=== PATIENT | female | born 1955 | race Caucasian/White ===

== ENCOUNTER 2021-06-17 09:42 | Outpatient (CLI) | payer MEDICARE | END 2021-06-17 23:59 | disposition home or self-care (01) | LOC: LAB.N 09:42 | PROVIDERS: ATTEND Family Medicine | DX: R39.9 Unspecified symptoms and signs involving the genitourinary system (principal) | CPT/HCPCS: 87086; 87181 ==

== ENCOUNTER 2022-03-15 12:35 | Outpatient (CLI) | payer MEDICARE ==
--- NOTE | 2022-03-15 16:54 | XRAY Report ---
PROCEDURE: Chest 2 View X-Ray INDICATIONS: ACUTE COUGH TECHNIQUE: 2 view(s) of the chest. COMPARISON: None. FINDINGS: Surgical changes and devices: None. Lungs and pleura: No pleural effusions or pneumothorax. Lungs are clear. Mediastinum: Mediastinal contours are normal. Heart size is normal. Bones and chest wall: No suspicious bony abnormalities. Soft tissues appear unremarkable. IMPRESSION: Chest without acute cardiopulmonary abnormalities. No focal consolidation. Reviewed by: Cabrera Cerda MD on 03/15/2022 4:51 PM PDT Approved by: Cabrera Cerda MD on 03/15/2022 4:51 PM PDT Station ID: [id number]
== END 2022-03-15 23:59 | disposition home or self-care (01) ==
LOC: DI.N 12:35
PROVIDERS: ATTEND Registered Nurse
DX: R05.1 Acute cough (principal)

== ENCOUNTER 2022-06-23 11:25 | Outpatient (CLI) | payer MEDICARE ==
--- NOTE | 2022-06-23 18:03 | XRAY Report ---
PROCEDURE: Chest 2 View X-Ray INDICATIONS: ABNORMAL CXR TECHNIQUE: 2 view(s) of the chest. COMPARISON: 03/15/2022. FINDINGS: Surgical changes and devices: None. Lungs and pleura: No pleural effusions or pneumothorax. Lungs are clear. Mediastinum: Mediastinal contours are normal. Heart size is normal. Bones and chest wall: No suspicious bony abnormalities. Soft tissues appear unremarkable. IMPRESSION: No acute cardiopulmonary pathology. Reviewed by: Gasper Mccormack MD on 06/23/2022 6:01 PM PDT Approved by: Gasper Mccormack MD on 06/23/2022 6:01 PM PDT Station ID: [id number]
== END 2022-06-23 11:26 | disposition home or self-care (01) ==
LOC: DI.N 11:25
PROVIDERS: ATTEND Student in an Organized Health Care Education/Training Program
DX: R91.8 Other nonspecific abnormal finding of lung field (principal)

== ENCOUNTER 2022-09-05 08:00 | Outpatient (CLI) | payer MEDICARE | END 2022-09-05 23:59 | disposition home or self-care (01) | LOC: LAB.R 08:00 | PROVIDERS: ATTEND Registered Nurse | DX: N39.0 Urinary tract infection, site not specified (principal) | CPT/HCPCS: 87086; 87181 ==

== ENCOUNTER 2022-10-10 16:32 | Outpatient (CLI) | payer MEDICARE ==
--- NOTE | 2022-10-10 17:39 | XRAY Report ---
PROCEDURE: Chest 2 View X-Ray INDICATIONS: COUGH TECHNIQUE: 2 views of the chest were acquired. COMPARISON: 06/23/2022, 03/15/2022 FINDINGS: Surgical changes and devices: None. Lungs and pleura: No pleural effusions or pneumothorax. Lungs are clear. Mediastinum: Mediastinal contours are normal. Heart size is normal. Calcification is seen of the a ortic arch. Bones and chest wall: No suspicious bony abnormalities. Age-appropriate degenerative changes are see n. There is accentuated thoracic kyphosis. Soft tissues appear unremarkable. IMPRESSION: No focal infiltrates are seen. Reviewed by: Gilson Gutierrez MD on 10/10/2022 4:38 PM [facility] Approved by: Gilson Gutierrez MD on 10/10/2022 4:38 PM [facility] Station ID: [id number]
== END 2022-10-10 23:59 | disposition home or self-care (01) ==
LOC: DI.N 16:32
PROVIDERS: ATTEND Nurse Practitioner
DX: R05.9 Cough, unspecified (principal)

== ENCOUNTER 2022-12-30 10:16 | Outpatient (CLI) | payer MEDICARE ==
[2022-12-30 10:56] VITALS: BP 132/80
--- NOTE | 2022-12-30 10:56 | SLEEP CARE CONSULTATION ---
Information from patient questionnaire entered by Jasmin Perez. I have reviewed and concur with the information entered by Jasmin Perez. This document represents the service I personally performed and the decisions made by me, Teresa Carson ARNP. History of Present Illness Service Date and Time: 12/30/2022 1016 Reason for Visit: New patient Chief Complaint: reports: Insomnia, Unrefreshed sleep, Snoring, Excessive daytime sleepiness, Observed pauses in breathing, Fatigue, Frequent awakenings at night Date of Onset: YRS Usual bedtime: 930-1130PM Time it takes to fall asleep: 10 MIN-1 HR Snores at night: Yes Observed to quit breathing while asleep: No Sleeps alone due to snoring: No Number of times waking at night: 4-6 Reasons for waking at night: reports: Snoring, Gasping for air, Pain, Bathroom Toss, Turn, or Twitch while sleeping: Yes Recalls having dreams: Yes (very vivid dreams all night) Usually gets out of bed at: 830AM Feels refreshed in the morning: Yes Morning headache: Yes (about every morning; LASTS ALL DAY USUALLY) Sleepy or fatigued during the day: Yes Ever fallen asleep while driving: No Takes day naps: Yes (very rare) Dreams during day naps: Yes Prior sleep studies: Yes Year and Where: [facility] Type of Sleep Study: Home sleep study Additional HPI information: I had the pleasure of seeing JOSE JAMIL today regarding the possibility of her having a sleep disorder. Her current complaints are unrefreshed sleep, snoring, excessive daytime sleepiness, observed pauses in breathing, fatigue and frequent night awakenings. She states she did have a sleep study that diagnosed her with sleep apnea but she did not tolerate the CPAP on her face. She is very sensitive to something on her face or in the room when she is trying to sleep. Patient was previously diagnosed with moderate obstructive sleep apnea by [facility] on 07/27/2020 with an AHI of 24.9. - Parasomnia Symptoms Walks in sleep: No Talks in sleep: No Ever acted out dreams in sleep: No Ever felt weak in the knees when startled or emotional: No Bothered by creepy, crawly, restless sensations in legs: Yes Problems with memory or concentration: Yes Subjective Initial [place] Sleepiness Scale score: 8 (12/29/22) Past Medical History Past Medical History: reports: Hypertension, Arthritis, Anxiety, GERD, Other (OSTEOPENIA, IBS, PSORIASIS) Social History The patient's occupation is a [employer]. Patient is and lives in [place]. Have you smoked in the past 12 months: No Alcohol use: Yes Alcohol amount and frequency: 2 GLASSES WINE DAILY Caffeine use: Yes Caffeine amount and frequency: 12 OZ PER WEEK Family History Family history of sleep disordered breathing: Yes Family Hx Sleep Apnea: Mother: Snoring, Sleep apnea - Untreated, Father: Snoring, Sleep apnea - Untreated, Sibling: Snoring, Sleep apnea - Treated Allergies and Home Medications Known drug allergies: Yes (BACTRIM - nausea/headache) Drug allergies reviewed: Yes Home medication list reviewed: Yes (see list in EMR) Review of Systems Weight loss over past 5 years: 30-trying to lose Cardiovascular: reports: high blood pressure, irregular heart rate or pulse (flutter), leg or foot swelling Respiratory: reports: shortness of breath, wheeze Gastrointestinal: reports: heartburn Neurological: reports: headaches Psychiatric: reports: anxiety Ear/Nose/Throat: reports: nasal congestion, sinus problems, dry mouth/throat, wisdom teeth removed. denies: tonsillectomy Endocrine: reports: sluggishness. denies: thyroid disease Musculoskeletal: reports: neck pain, back pain, muscle pain or cramping Immunologic: reports: sneezing, rash, itching, allergies to food or environment (do not use port product) Physical Exam Vital signs obtained and entered by: JASMIN Hobson MA Blood Pressure: 132/80 (LEFT ARM) Cuff size: regular Heart Rate: 57 O2 Saturation: 95 Height: 5 ft 6 in Weight: 201 lb 12.8 oz Body Mass Index: 32.5 BMI Classification: Obese Neck circumference: 16 Mouth and throat: narrow oropharynx Soft palate: long Hard palate: normal Uvula: normal Uvula visualization: 0% Mallampati Class IV Tongue: enlarged in size with teeth villarreal on lateral edges Tonsils: small Neck: normal w/o lymphadenopathy or thyromegaly Heart: regular rate and rhythm Lungs: clear bilaterally Impression and Plan 1. Suspected Obstructive Sleep Apnea-Hypopnea Syndrome, as previously diagnosed and as suggested by a history of loud and irregular snoring, observed cessation of breath while asleep, morning headache and frequent awakening during the night. Narrow oropharynx and obesity are common predisposing factors for obstructive sleep apnea-hypopnea syndrome. I recommend proceeding to polysomnography to confirm the diagnosis and to assess severity. If the patient has significant sleep disordered breathing, a manual CPAP titration study will also be performed to find the optimal treatment pressure. I informed the patient of what the sleep studies involve and after some discussion, obtained agreement to proceed. The pathophysiology of obstructive sleep apnea-hypopnea syndrome was discussed with the patient and health risks of cardiovascular and cerebrovascular disease if not treated. Risks of drowsy driving discussed in detail and patient advised to avoid long distance driving and to rod puller and coiler at the first sign of drowsiness. Patient agreed to plan. * Schedule polysomnography * Avoid long distance driving or driving when feeling sleepy. * Avoid alcohol, sedative and muscle relaxant around bedtime. * Attempt to lose weight. * Review instructions provided by trained office staff on how to prepare for the sleep study. * Return for follow-up after sleep study completed. Counseling Topics: Weight loss health impact Visit Type: In Office Time Spent with Patient (minutes): 32 Provider Statement: I spent 100% of the Face to Face Visit with the patient with greater than 50% spent counseling the patient and coordination of care.
== END 2022-12-30 10:17 | disposition home or self-care (01) ==
LOC: SC 10:16
PROVIDERS: ATTEND Nurse Practitioner Family
DX: G47.33 Obstructive sleep apnea (adult) (pediatric) (principal); E66.9 Obesity, unspecified; Z68.32 Body mass index [BMI] 32.0-32.9, adult
CPT/HCPCS: 99203; G0463; 99212

== ENCOUNTER 2023-02-09 08:52 | Outpatient (CLI) | payer MEDICARE | END 2023-02-09 08:53 | disposition home or self-care (01) | LOC: SC 08:52 | PROVIDERS: ATTEND Nurse Practitioner Family | DX: G47.33 Obstructive sleep apnea (adult) (pediatric) (principal); R09.02 Hypoxemia | CPT/HCPCS: 95810 ==

== ENCOUNTER 2023-03-29 11:43 | Outpatient (CLI) | payer MEDICARE ==
--- NOTE | 2023-03-29 12:11 | SLEEP CARE CONSULTATION ---
Information from patient questionnaire entered by Renee Perez. I have reviewed and concur with the information entered by Renee Perez. This document represents the service I personally performed and the decisions made by me, Teresa Carson ARNP. History of Present Illness Service Date and Time: 03/29/2023 1143 Initial [place] Sleepiness Scale score: 8 (12/29/22) Current [place] Sleepiness Scale score: 7 Additional HPI information: JOSE JAMIL returns for follow up and results of the recently performed home sleep study. She was seen to have severe obstructive sleep apnea with an average AHI of 32.9 and bucky oxygen saturation of 70%. I explained the pathophysiology behind obstructive sleep apnea. We then spent quite a bit of time discussing different treatment options. For mild obstructive sleep apnea, surgery and oral appliance are alternatives to nasal CPAP therapy but in moderate or severe cases, nasal CPAP is the most effective and reliable treatment. I reviewed the impact of weight changes on sleep apnea and strongly recommended losing weight. After some discussion, the patient opted to go with the nasal CPAP therapy. Nasal autoCPAP set at 4-15 cmH20 will be ordered with rationale explained. A manual titration study will be ordered if unable to find optimal pressure with office adjustments. I explained how CPAP machine works and what to expect when using the machine. Using CPAP every night in order to get used to it was emphasized. Patient advised to put CPAP mask on before getting into bed so as not to fall asleep without CPAP. To assist acclimation to CPAP use, it could also be used for a short time during day while reading or watching TV. The patient was instructed to call the CPAP supplier to discuss any mechanical problem that may occur. If the mask given is uncomfortable or is difficult to keep on through the night even with adjustment, contact the CPAP supplier as many will replace with another mask style if notified before 30 days. If snoring or perceives is not getting enough air or too much air from the machine, notify this office. Patient counseled not drink alcohol less than 4 hours before bedtime as it can increase snoring and apnea. Patient was cautioned about risks of drowsy driving until sleepiness symptoms resolve. Patient denies drowsy driving. Sleep Study - Results Type of Sleep Study: Home sleep study (COMPLETED 02/09/23) Prior sleep studies: Yes Year and Where: [facility] Polysomnography/Home Sleep Study results: Physician Impression: The quality of the study is good. The length of the study is adequate (> 240 minutes). Please also see the tabulated and graphic data. 1. Obstructive Sleep Apnea-Hypopnea (ICD-10 G47.33), severe, with an AHI of 32.9/hr and bucky SaO2 of 70%. During the study, the patient had 118 apneas (118 obstructive, 0 central, 0 mixed) and 137 hypopneas. The longest episode lasted 63.5 seconds. The patient did not sleep supine during this study. 2. Hypoxemia (ICD-10 R09.02), moderate, with the lowest oxygen saturation of 70 % and 78.5 minutes with SaO2 under 90%. Baseline oxygen saturation was normal (Average oxygen saturation was 91%). Allergies and Home Medications Known drug allergies: No Drug allergies reviewed: Yes Home medication list reviewed: Yes (no changes) Allergy and home medication list: Allergies No Known Drug Allergies Allergy (Verified 03/28/23 21:58) Review of Systems Review of systems same as previous: Yes (no changes) Physical Exam Vital signs obtained and entered by: Teresa Marquez NP Blood Pressure: 136/76 Cuff size: wrist (right) Heart Rate: 53 O2 Saturation: 99 Height: 5 ft 6 in Weight: 196 lb 3.2 oz Body Mass Index: 31.6 BMI Classification: Obese Impression and Plan 1. Obstructive Sleep Apnea-Hypopnea Syndrome, severe, with lowest oxygen saturation of 70%. Obviously this is the cause of the patients symptoms of unrefreshed sleep, and excessive daytime sleepiness. Positive pressure therapy could benefit hypertension, anxiety and gastric reflux. As mentioned above, the patient will be started on nasal autoCPAP therapy with pressure set at 4-15 cmH2 O. Compliance guidelines also reviewed. A copy of compliance guidelines will be given for reference at check out. 2. Hypoxemia, moderate, with a bucky oxygen saturation of 70% and 78.5 minutes spent under 90%. Her baseline oxygen saturation was normal with an average oxygen saturation of 91%. * Nasal auto CPAP therapy, pressure at 4-15 cm H2O. * Attempt to lose weight. * Avoid alcohol consumption near bedtime. * Avoid supine sleep until using CPAP. * The patient is again cautioned about driving until sleepiness completely resolves. * Return one month after CPAP obtained. I will assess response to therapy and compliance at that time. Counseling Topics: Weight loss health impact Visit Type: In Office Time Spent with Patient (minutes): 21 Provider Statement: I spent 100% of the Face to Face Visit with the patient with greater than 50% spent counseling the patient and coordination of care.
[2023-03-29 12:12] VITALS: BP 136/76
== END 2023-03-29 11:44 | disposition home or self-care (01) ==
LOC: SC 11:43
PROVIDERS: ATTEND Nurse Practitioner Family
DX: G47.33 Obstructive sleep apnea (adult) (pediatric) (principal); R09.02 Hypoxemia; E66.9 Obesity, unspecified; Z68.31 Body mass index [BMI] 31.0-31.9, adult
CPT/HCPCS: 99213; G0463; 99212

== ENCOUNTER 2023-06-20 15:24 | Outpatient (CLI) | payer MEDICARE ==
--- NOTE | 2023-06-20 15:44 | Sleep Patient Instructions ---
Sleep Center Visit Summary - Patient Visit Information Reason for Visit: First Compliance for PAP Therapy - Patient Instructions Additional Instructions: You were here for follow up of CPAP therapy. You will be continued on CPAP therapy with pressure at 10-16 cmH2O. Please let us know if the pressure change is uncomfortable and we can make further adjustments of the pressure. You should follow up with sleep care in 1-2 months. You may contact us sooner for any questions or concerns. - Clinic Information Contact: [facility] [address] [place] [address] [email or web address] T: [phone]
--- NOTE | 2023-06-20 15:49 | SLEEP CARE CONSULTATION ---
Information from patient questionnaire entered by Jasmin Perez. I have reviewed and concur with the information entered by Jasmin Perez. This document represents the service I personally performed and the decisions made by me, Teresa Carson ARNP. History of Present Illness Service Date and Time: 06/20/2023 1524 Previous diagnosis: Severe, Obstructive Sleep Apnea-Hypopnea Syndrome AHI: 32.9 (01/2023) Reason for follow up: first compliance Equipment type: CPAP (RESMED Airsense 11, s/u 04/2023) Equipment obtained from: Other ([facility]) Mask style: Nasal pillows Mask brand: Resmed (AirFit P10) Backup mask available: Yes (other mask) Last cushion change: 2 weeks Prior sleep studies: Yes Year and Where: [facility] Type of Sleep Study: Home sleep study (COMPLETED 02/09/23) HPI additional information: JOSE JAMIL was diagnosed to have severe, AHI 32.9, obstructive sleep apnea- hypopnea syndrome and returned today for CPAP therapy first compliance follow- up. Sleep Study - Results Type of Sleep Study: Home sleep study (COMPLETED 02/09/23) Prior sleep studies: Yes Year and Where: [facility] CPAP Compliance Data - Data Reviewed with Patient Average duration of nightly device use: 6 hours 50 minutes Compliance rate %: 93 (/30 days used) Current pressure setting (cmH2O): 4-15 (median 7.7, avg 10, max 11.3) Average residual AHI: 9.4 Central apnea: 5.0 Obstructive apnea: 3.6 Hypopnea: 0.5 Average large leak: 0.6 Subjective Patient concerns: denies: aerophagia, mask discomfort, air blowing in eyes, mask leak noise, condensation in mask/hose, nasal congestion, dry mouth, nose, throat, epistaxis Observed to snore while using device: No Current pressure setting perceived as: comfortable On therapy, patient: reports: sleeping better, awakening more refreshed, being more awake and alert during the day, more rested overall. denies: drowsiness while driving Initial [place] Sleepiness Scale score: 8 (12/29/22) Current [place] Sleepiness Scale score: 8 (06/20/23) Allergies and Home Medications Known drug allergies: No Drug allergies reviewed: Yes Home medication list reviewed: Yes (no changes) Allergy and home medication list: Allergies No Known Drug Allergies Allergy (Verified 06/16/23 10:04) Review of Systems Review of systems same as previous: Yes (no changes) Physical Exam Vital signs obtained and entered by: JASMIN Hobson MA Blood Pressure: 128/72 (LEFT ARM) Cuff size: regular Heart Rate: 51 O2 Saturation: 96 Height: 5 ft 6 in Weight: 194 lb Body Mass Index: 31.3 BMI Classification: Obese Impression and Plan 1. Obstructive Sleep Apnea-Hypopnea Syndrome, severe, with good treatment compliance and fair apnea control with elevated residual AHI. On CPAP therapy, the patient has better sleep quality and is more rested overall. She states she tried the CPAP 6 years ago and could not adjust to it. She was very pleasantly surprised that with the nasal pillows mask, AirFit P10, she finds it comfortable and is tolerating it well. She sometimes has to pull mask off to see if the pressure is on, perhaps a little too low but otherwise comfortable. The patients pressure will be changed to autoCPAP 10-16 cmH20 to reflect pressure being used and for elevated residual AHI. If unable to reduce AHI will schedule a titration study to find optimal pressure setting. Patient advised to contact me if pressure change is uncomfortable so that it can be adjusted. Goals for apnea control discussed. Patient's apnea severity and rationale for treatment to reduce apnea, improve sleep quality and reduce cardiovascular and cerebrovascular events was reviewed. I also reviewed the benefit of consistent device use of CPAP for hypertension, gastric reflux and anxiety. 2. Obesity, unspecified. Currently patients BMI is 31.3. Obesity increases the risk of apnea, CPAP pressure requirements and overall health risks especially cardiovascular and diabetes. Thus patient is advised to lose weight. * Change auto CPAP pressure to 10-16 cmH2O * Notify me if snoring with mask or feeling that the pressure is too much or too little * Attempt to lose weight * Call this office if any problems using CPAP * Return for follow up in 1-2 months, or sooner if concerns arise Counseling Topics: Spare mask, Weight loss health impact Visit Type: In Office Time Spent with Patient (minutes): 15 Provider Statement: I spent 100% of the Face to Face Visit with the patient with greater than 50% spent counseling the patient and coordination of care.
[2023-06-20 15:55] VITALS: BP 128/72; O2SAT 96
== END 2023-06-20 15:25 | disposition home or self-care (01) ==
LOC: SC 15:24
PROVIDERS: ATTEND Nurse Practitioner Family
DX: G47.33 Obstructive sleep apnea (adult) (pediatric) (principal); E66.9 Obesity, unspecified; Z68.31 Body mass index [BMI] 31.0-31.9, adult
CPT/HCPCS: 99212; G0463

== ENCOUNTER 2023-08-08 14:54 | Outpatient (CLI) | payer MEDICARE ==
--- NOTE | 2023-08-08 15:14 | Sleep Patient Instructions ---
Sleep Center Visit Summary - Patient Visit Information Reason for Visit: 6-week follow up - Patient Instructions Additional Instructions: You were here for follow up of CPAP therapy. You will be continued on CPAP therapy with pressure at 10-16 cmH2O. You should follow up with sleep care in 3 months. You may contact us sooner for any questions or concerns. - Clinic Information Contact: [facility] [address] [place] [address] [email or web address] T: [phone]
--- NOTE | 2023-08-08 15:21 | SLEEP CARE CONSULTATION ---
Information from patient questionnaire entered by Jasmin Perez. I have reviewed and concur with the information entered by Jasmin Perez. This document represents the service I personally performed and the decisions made by , Teresa Carson ARNP. History of Present Illness Service Date and Time: 08/08/2023 1454 Previous diagnosis: Severe, Obstructive Sleep Apnea-Hypopnea Syndrome AHI: 32.9 (01/2023) Reason for follow up: other (SI WEEK F/U) Equipment type: CPAP (RESMED Airsense 11, s/u 04/2023) Equipment obtained from: Other ([facility]; getting supplies) Mask style: Nasal pillows Backup mask available: No (will keep old mask when replaced) Last cushion change: 2 weeks Prior sleep studies: Yes Year and Where: [facility] Type of Sleep Study: Home sleep study (COMPLETED 02/09/23) HPI additional information: JOSE JAMIL was diagnosed to have severe, AHI 32.9, obstructive sleep apnea- hypopnea syndrome and returned today for CPAP therapy six week with pressure change follow-up. Sleep Study - Results Type of Sleep Study: Home sleep study (COMPLETED 02/09/23) Prior sleep studies: Yes Year and Where: [facility] CPAP Compliance Data - Data Reviewed with Patient Average duration of nightly device use: 5 hours 54 minutes Compliance rate %: 55 ( day used) Current pressure setting (cmH2O): 10-16 (avg 12.1) Average residual AHI: 6.4 Central apnea: 3.8 Obstructive apnea: 1.7 Hypopnea: 0.4 Average large leak: 4.9 L/min Subjective Missed days of use due to: reports: illness (got Covid 07/06 and due to cough and congestion unable to use the CPAP) Patient concerns: denies: aerophagia, mask discomfort, air blowing in eyes, mask leak noise, condensation in mask/hose, nasal congestion, dry mouth, nose, throat, epistaxis Observed to snore while using device: No Current pressure setting perceived as: comfortable On therapy, patient: reports: sleeping better, awakening more refreshed, being more awake and alert during the day, more rested overall. denies: drowsiness while driving Initial [place] Sleepiness Scale score: 8 (12/29/22) Current [place] Sleepiness Scale score: 8 (08/08/23) Allergies and Home Medications Known drug allergies: No Drug allergies reviewed: Yes Home medication list reviewed: Yes (felodipine 5 mg; starting on Albuterol inhaler for residual Covid syptoms) Allergy and home medication list: Allergies No Known Drug Allergies Allergy (Verified 08/07/23 09:43) Review of Systems Review of systems same as previous: No (Covid 07/06, resolve with residual symptoms) Physical Exam Vital signs obtained and entered by: JASMIN Hobson MA Blood Pressure: 122/74 (LEFT ARM) Cuff size: regular Heart Rate: 71 O2 Saturation: 94 Height: 5 ft 6 in Weight: 197 lb 9.6 oz Body Mass Index: 31.8 BMI Classification: Obese Impression and Plan 1. Obstructive Sleep Apnea-Hypopnea Syndrome, severe, with good treatment compliance and fair apnea control. On CPAP therapy, the patient has better sleep quality and is more rested overall. She says things are going very well with the CPAP and the pressure felt better after her last adjustment. She says she got Covid in June and had a hard time using the CPAP because of coughing and congestion. She has resumed using the CPAP but is still having residual cough and breathing issues. [place] was prescribed an Albuterol inhaler. She hopes this will allow her to use her CPAP easier. I reviewed her compliance and therapy report which shows improvement of her AHI. I will make no adjustments today and have her followup in 3 months. Patient has significant improvement of their sleep apnea and is satisfied with current CPAP therapy. Patient's apnea severity and rationale for treatment to reduce apnea, improve sleep quality and reduce cardiovascular and cerebrovascular events was reviewed. I also reviewed the benefit of consistent device use of CPAP for hypertension, gastric reflux and anxiety. 2. Obesity, unspecified. Currently patients BMI is 31.8. Obesity increases the risk of apnea, CPAP pressure requirements and overall health risks especially cardiovascular and diabetes. Thus patient is advised to lose weight. * Continue auto CPAP pressure at 10-16 cmH2O * Notify me if snoring with mask or feeling that the pressure is too much or too little * Attempt to lose weight * Call this office if any problems using CPAP * Return for follow up in 3 months, or sooner if concerns arise Counseling Topics: Spare mask, Weight loss health impact Follow up with Sleep Care in: 3 months Visit Type: In Office Time Spent with Patient (minutes): 21 Provider Statement: I spent 100% of the Face to Face Visit with the patient with greater than 50% spent counseling the patient and coordination of care.
[2023-08-08 15:22] VITALS: BP 122/74; O2SAT 94
== END 2023-08-08 14:55 | disposition home or self-care (01) ==
LOC: SC 14:54
PROVIDERS: ATTEND Nurse Practitioner Family
DX: G47.33 Obstructive sleep apnea (adult) (pediatric) (principal); E66.9 Obesity, unspecified; Z68.31 Body mass index [BMI] 31.0-31.9, adult
CPT/HCPCS: 99213; G0463; 99212

== ENCOUNTER 2023-11-14 10:44 | Outpatient (CLI) | payer MEDICARE ==
--- NOTE | 2023-11-14 11:17 | Sleep Patient Instructions ---
Sleep Center Visit Summary - Patient Visit Information Reason for Visit: Three month follow-up - Patient Instructions Additional Instructions: You were here for follow up of CPAP therapy. You will be continued on CPAP therapy with pressure at 9-11 cmH2O. Please let us know if the pressure change is uncomfortable and we can make further adjustments of the pressure. You should follow up with sleep care in 1-2 months. You may contact us sooner for any questions or concerns. - Clinic Information Contact: [facility] [address] [place] [id number] [email or web address] T: [phone]
--- NOTE | 2023-11-14 11:19 | SLEEP CARE CONSULTATION ---
Information from patient questionnaire entered by Renee Perez. I have reviewed and concur with the information entered by Renee Perez. This document represents the service I personally performed and the decisions made by , Teresa Carson ARNP. History of Present Illness Service Date and Time: 11/14/2023 1044 Previous diagnosis: Severe, Obstructive Sleep Apnea-Hypopnea Syndrome AHI: 32.9 (01/2023) Reason for follow up: three month (F/U) Equipment type: CPAP (RESMED Airsense 11, s/u 04/2023) Equipment obtained from: Other ([facility]; getting supplies) Mask style: Nasal pillows Mask brand: Resmed (AirFit P10) Backup mask available: Yes Last cushion change: 1 month Prior sleep studies: Yes Year and Where: [facility] Type of Sleep Study: Home sleep study (COMPLETED 02/09/23) HPI additional information: JOSE JAMIL was diagnosed to have severe, AHI 32.9, obstructive sleep apnea- hypopnea syndrome and returned today for CPAP therapy three month follow-up. Sleep Study - Results Type of Sleep Study: Home sleep study (COMPLETED 02/09/23) Prior sleep studies: Yes Year and Where: [facility] CPAP Compliance Data - Data Reviewed with Patient Average duration of nightly device use: 6 HRS 38 MINS Compliance rate %: 90 (10/15/2023-11/13/2023) Current pressure setting (cmH2O): 10-16 (as seen online) (median 10.8, avg 12.3, max 13.2) Average residual AHI: 11.7 Central apnea: 8.3 Obstructive apnea: 1.9 Hypopnea: 0.4 Average large leak: 6 L/min Subjective Missed days of use due to: reports: illness (Covid, cough) Patient concerns: denies: aerophagia, mask discomfort, air blowing in eyes, mask leak noise, condensation in mask/hose, nasal congestion, dry mouth, nose, throat, epistaxis Observed to snore while using device: No Current pressure setting perceived as: comfortable On therapy, patient: reports: sleeping better, awakening more refreshed, being more awake and alert during the day, more rested overall. denies: drowsiness while driving Initial [place] Sleepiness Scale score: 8 (12/29/22) Current [place] Sleepiness Scale score: 6 Allergies and Home Medications Known drug allergies: Yes (Bactrim, pork products) Drug allergies reviewed: Yes Home medication list reviewed: Yes (as listed) Allergy and home medication list: Allergies Pork/Porcine Containing Products Adverse Reaction (Verified 11/14/23 11:07) Rash sulfamethoxazole [From Bactrim] Adverse Reaction (Verified 11/14/23 11:07) Nausea trimethoprim [From Bactrim] Adverse Reaction (Verified 11/14/23 11:07) Nausea Home Medications Aspirin [Aspirin EC] See Rx Instructions .ROUTE .COMPLEX 12/30/22 [History] Atorvastatin [Lipitor] See Rx Instructions .ROUTE .COMPLEX 12/30/22 [History] Ezetimibe [Zetia] See Rx Instructions .ROUTE .COMPLEX 12/30/22 [History] Fluoxetine HCl [Prozac] See Rx Instructions .ROUTE .COMPLEX 12/30/22 [History] Losartan Potassium [Cozaar] See Rx Instructions .ROUTE .COMPLEX 12/30/22 [History] Magnesium Citrate and Oxide [Magnesium] See Rx Instructions .ROUTE .COMPLEX 12/30/22 [History] Metoprolol Succinate [Toprol Xl] See Rx Instructions .ROUTE .COMPLEX 12/30/22 [History] Multivit-Minerals/Folic Acid [Multivitamin Gummies] See Rx Instructions .ROUTE .COMPLEX 12/30/22 [History] Pantoprazole [Protonix] See Rx Instructions .ROUTE .COMPLEX 12/30/22 [History] Ubidecarenone [Co Q-10] See Rx Instructions .ROUTE .COMPLEX 12/30/22 [History] hydroCHLOROthiazide [Hydrodiuril] See Rx Instructions .ROUTE .COMPLEX 12/30/22 [History] Albuterol Sulfate [Proair Respiclick] See Rx Instructions .ROUTE .COMPLEX 08/08/23 [History] Felodipine [Felodipine ER] See Rx Instructions .ROUTE .COMPLEX 08/08/23 [History] Review of Systems Review of systems same as previous: Yes (no changes) Physical Exam Vital signs obtained and entered by: SUMAN SANCHEZ Blood Pressure: 148/73 Cuff size: regular (right arm) Heart Rate: 51 O2 Saturation: 98 Height: 5 ft 6 in Weight: 207 lb 6.4 oz Body Mass Index: 33.5 BMI Classification: Obese Impression and Plan 1. Obstructive Sleep Apnea-Hypopnea Syndrome, severe, with good treatment compliance and fair apnea control with elevated residual AHI. On CPAP therapy, the patient has better sleep quality and is more rested overall. She had elevated central index at 8.3, obstructive index at 1.9 and hypopnea index at 0.4. The patients pressure will be changed to autoCPAP 9-11 cmH20 for elevation of residual AHI. Patient advised to contact me if pressure change is uncomfortable so that it can be adjusted. Goals for apnea control discussed. Patient's pressure setting is not optimal to control sleep apnea. I advised patient that a titration study will be next step to determine a more optimal pressure setting. She would like to see if this adjustment is enough before going ahead with a titration study. We will have her followup in 1-2 months and revisit the titration study as needed. Patient's apnea severity and rationale for treatment to reduce apnea, improve sleep quality and reduce cardiovascular and cerebrovascular events was reviewed. I also reviewed the benefit of consistent device use of CPAP for hypertension, gastric reflux and anxiety. 2. Obesity, unspecified. Currently patients BMI is 33.5. Obesity increases the risk of apnea, CPAP pressure requirements and overall health risks especially cardiovascular and diabetes. Thus patient is advised to lose weight. * Change auto CPAP pressure to 9-11 cmH2O * Notify me if snoring with mask or feeling that the pressure is too much or too little * Attempt to lose weight * Call this office if any problems using CPAP * Return for follow up in 1-2 months, or sooner if concerns arise Counseling Topics: Spare mask, Weight loss health impact Follow up with Sleep Care in: 1-2 months Visit Type: In Office Time Spent with Patient (minutes): 21 Provider Statement: I spent 100% of the Face to Face Visit with the patient with greater than 50% spent counseling the patient and coordination of care.
[2023-11-14 11:28] VITALS: BP 148/73; O2SAT 98
== END 2023-11-14 10:45 | disposition home or self-care (01) ==
LOC: SC 10:44
PROVIDERS: ATTEND Nurse Practitioner Family
DX: G47.33 Obstructive sleep apnea (adult) (pediatric) (principal); E66.9 Obesity, unspecified; Z68.33 Body mass index [BMI] 33.0-33.9, adult
CPT/HCPCS: 99213; G0463; 99212

== ENCOUNTER 2024-01-10 10:27 | Outpatient (CLI) | payer MEDICARE ==
--- NOTE | 2024-01-10 10:50 | Sleep Patient Instructions ---
Sleep Center Visit Summary - Patient Visit Information Reason for Visit: 2-month follow-up with pressure change - Patient Instructions Additional Instructions: You were here for follow up of CPAP therapy. You will be continued on CPAP therapy with pressure at 8-10 cmH2O. Please let us know if the pressure change is uncomfortable and we can make further adjustments of the pressure. You should follow up with sleep care in 1-2 months. You may contact us sooner for any questions or concerns. - Clinic Information Contact: [facility] [place] [facility] [address] [place] [id number] [email or web address] T: [phone]
--- NOTE | 2024-01-10 10:51 | SLEEP CARE CONSULTATION ---
Information from patient questionnaire entered by Jasmin Perez. I have reviewed and concur with the information entered by Jasmin Perez. This document represents the service I personally performed and the decisions made by , Teresa Carson ARNP. History of Present Illness Service Date and Time: 01/10/2024 1027 Previous diagnosis: Severe, Obstructive Sleep Apnea-Hypopnea Syndrome AHI: 32.9 (01/2023) Reason for follow up: other (2 MONTH F/U) Equipment type: CPAP (RESMED Airsense 11, s/u 04/2023) Equipment obtained from: Other ([facility]; getting supplies) Mask style: Nasal pillows Mask brand: Resmed (AirFit P10) Backup mask available: Yes Last cushion change: 1 month Prior sleep studies: Yes Year and Where: [facility] Type of Sleep Study: Home sleep study (COMPLETED 02/09/23) HPI additional information: JOSE JAMIL was diagnosed to have severe, AHI 32.9, obstructive sleep apnea- hypopnea syndrome and returned today for CPAP therapy two month follow-up. Sleep Study - Results Type of Sleep Study: Home sleep study (COMPLETED 02/09/23) Prior sleep studies: Yes Year and Where: [facility] CPAP Compliance Data - Data Reviewed with Patient Average duration of nightly device use: 6 HRS 29 MINS Compliance rate %: 65 (11/09/23-01/07/24; 42/60 days used; 83% in las 30 days) Current pressure setting (cmH2O): 9-11 (median 10.1, avg 11, max 11.1) Average residual AHI: 8.8 Central apnea: 5.7 Obstructive apnea: 2.4 Hypopnea: 0.3 Average large leak: 4.5 L/min Subjective Missed days of use due to: reports: illness Patient concerns: denies: aerophagia, mask discomfort, air blowing in eyes, mask leak noise, condensation in mask/hose, nasal congestion, dry mouth, nose, throat, epistaxis Observed to snore while using device: No Current pressure setting perceived as: comfortable On therapy, patient: reports: sleeping better, awakening more refreshed, being more awake and alert during the day, more rested overall. denies: drowsiness while driving Initial [place] Sleepiness Scale score: 8 (12/29/22) Current [place] Sleepiness Scale score: 7 (01/10/24) Allergies and Home Medications Known drug allergies: Yes (as listed) Drug allergies reviewed: Yes Home medication list reviewed: Yes (no changes) Allergy and home medication list: Allergies Pork/Porcine Containing Products Adverse Reaction (Verified 01/08/24 08:48) Rash sulfamethoxazole [From Bactrim] Adverse Reaction (Verified 01/08/24 08:48) Nausea trimethoprim [From Bactrim] Adverse Reaction (Verified 01/08/24 08:48) Nausea Review of Systems Review of systems same as previous: Yes (NO CHANGE) Physical Exam Vital signs obtained and entered by: JASMIN Hobson MA Blood Pressure: 135/63 (RIGHT ARM) Cuff size: regular Heart Rate: 58 O2 Saturation: 96 Height: 5 ft 6 in Weight: 207 lb Body Mass Index: 33.4 BMI Classification: Obese Impression and Plan 1. Obstructive Sleep Apnea-Hypopnea Syndrome, severe, with fair treatment compliance and fair apnea control with elevated residual AHI. On CPAP therapy, the patient has better sleep quality and is more rested overall. She has a residual AHI elevated at 8.8 which is reduced with last adjustment. Her indexes include CI 5.7, OI 2.4 and HI 0.3. Her average large leak is at 4.5 L/min. The patients pressure will be changed to autoCPAP 8-10 cmH20 for elevation of residual AHI. Patient advised to contact me if pressure change is uncomfortable so that it can be adjusted. Goals for apnea control discussed. Patient's apnea severity and rationale for treatment to reduce apnea, improve sleep quality and reduce cardiovascular and cerebrovascular events was reviewed. I also reviewed the benefit of consistent device use of CPAP for hypertension, gastric reflux, anxiety. 2. Obesity, unspecified. Currently patients BMI is 33.4. Obesity increases the risk of apnea, CPAP pressure requirements and overall health risks especially cardiovascular and diabetes. Thus patient is advised to lose weight. * Change auto CPAP pressure to 8-10 cmH2O * Notify me if snoring with mask or feeling that the pressure is too much or too little * Attempt to lose weight * Call this office if any problems using CPAP * Return for follow up in 1-2 months, or sooner if concerns arise Adjust device pressure to (cmH2O): 8-10 Counseling Topics: Spare mask, Weight loss health impact Follow up with Sleep Care in: 1-2 months Visit Type: In Office Time Spent with Patient (minutes): 12 Provider Statement: I spent 100% of the Face to Face Visit with the patient with greater than 50% spent counseling the patient and coordination of care.
[2024-01-10 11:00] VITALS: BP 135/63; O2SAT 96
== END 2024-01-10 10:28 | disposition home or self-care (01) ==
LOC: SC 10:27
PROVIDERS: ATTEND Nurse Practitioner Family
DX: G47.33 Obstructive sleep apnea (adult) (pediatric) (principal); E66.9 Obesity, unspecified; Z68.33 Body mass index [BMI] 33.0-33.9, adult
CPT/HCPCS: 99212; G0463

== ENCOUNTER 2024-03-05 10:28 | Outpatient (CLI) | payer MEDICARE ==
--- NOTE | 2024-03-05 10:58 | Sleep Patient Instructions ---
Sleep Center Visit Summary - Patient Visit Information Reason for Visit: 2-month follow-up - Patient Instructions Additional Instructions: You were here for follow up of CPAP therapy. You will be continued on CPAP therapy with pressure at 6-9 cmH2O. Please let us know if the pressure change is uncomfortable and we can make further adjustments of the pressure. You should follow up with sleep care in 3 months. You may contact us sooner for any questions or concerns. - Clinic Information Contact: [facility] [address] [place] [id number] [email or web address] T: [phone]
--- NOTE | 2024-03-05 11:00 | SLEEP CARE CONSULTATION ---
Information from patient questionnaire entered by Jasmin Perez. I have reviewed and concur with the information entered by Jasmin Perez. This document represents the service I personally performed and the decisions made by , Teresa Carson ARNP. History of Present Illness Service Date and Time: 03/05/2024 1028 Previous diagnosis: Severe, Obstructive Sleep Apnea-Hypopnea Syndrome AHI: 32.9 (01/2023) Reason for follow up: other (2MONTH F/U) Equipment type: CPAP (RESMED Airsense 11, s/u 04/2023) Equipment obtained from: Other ([facility]; getting supplies) Mask style: Nasal pillows Backup mask available: Yes Last cushion change: 1 month Prior sleep studies: Yes Year and Where: [facility] Type of Sleep Study: Home sleep study (COMPLETED 02/09/23) HPI additional information: JOSE JAMIL was diagnosed to have severe, AHI 32.9, obstructive sleep apnea- hypopnea syndrome and returned today for CPAP therapy two month follow-up. Sleep Study - Results Type of Sleep Study: Home sleep study (COMPLETED 02/09/23) Prior sleep studies: Yes Year and Where: [facility] CPAP Compliance Data - Data Reviewed with Patient Average duration of nightly device use: 6 HRS 38 MINS Compliance rate %: 82 (12/31/23-02/28/24; 53/60 days used) Current pressure setting (cmH2O): 8-10 (avg 9.9) Average residual AHI: 6.8 Central apnea: 3.2 Obstructive apnea: 2.8 Hypopnea: 0.4 Average large leak: 5.1 L/min Subjective Patient concerns: denies: aerophagia, mask discomfort, air blowing in eyes, mask leak noise, condensation in mask/hose, nasal congestion, dry mouth, nose, throa t, epistaxis Observed to snore while using device: No Current pressure setting perceived as: comfortable On therapy, patient: reports: sleeping better, awakening more refreshed, being more awake and alert during the day, more rested overall. denies: drowsiness while driving Initial [place] Sleepiness Scale score: 8 (12/29/22) Current [place] Sleepiness Scale score: 6 (03/05/24) Allergies and Home Medications Known drug allergies: Yes (as listed) Drug allergies reviewed: Yes Home medication list reviewed: Yes (no changes) Allergy and home medication list: Allergies Pork/Porcine Containing Products Adverse Reaction (Verified 02/29/24 11:43) Rash sulfamethoxazole [From Bactrim] Adverse Reaction (Verified 02/29/24 11:43) Nausea trimethoprim [From Bactrim] Adverse Reaction (Verified 02/29/24 11:43) Nausea Review of Systems Review of systems same as previous: Yes (NO CHANGE) Physical Exam Vital signs obtained and entered by: JASMIN Hobson MA Blood Pressure: 149/78 (LEFT ARM) Cuff size: long Heart Rate: 54 O2 Saturation: 94 Height: 5 ft 6 in Weight: 207 lb 6.4 oz Body Mass Index: 33.5 BMI Classification: Obese Impression and Plan 1. Obstructive Sleep Apnea-Hypopnea Syndrome, severe, with good treatment compliance and fair apnea control with elevated residual AHI. On CPAP therapy, the patient has better sleep quality and is more rested overall. She is comfortable with pressure settings and has not complaints. The patients pressure will be changed to autoCPAP 6-9 cmH20 for elevation of residual AHI. Patient advised to contact me if pressure change is uncomfortable so that it can be adjusted. Goals for apnea control discussed. Patient's apnea severity and rationale for treatment to reduce apnea, improve sleep quality and reduce cardiovascular and cerebrovascular events was reviewed. I also reviewed the benefit of consistent device use of CPAP for hypertension, gastric reflux, anxiety. 2. Obesity, unspecified. Currently patients BMI is 33.5. Obesity increases the risk of apnea, CPAP pressure requirements and overall health risks especially cardiovascular and diabetes. Thus patient is advised to lose weight. * Change auto CPAP pressure to 6-9 cmH2O * Notify me if snoring with mask or feeling that the pressure is too much or too little * Attempt to lose weight * Call this office if any problems using CPAP * Return for follow up in 3 months, or sooner if concerns arise Adjust device pressure to (cmH2O): 6-9 Counseling Topics: Spare mask, Weight loss health impact Follow up with Sleep Care in: 3 months Visit Type: In Office Time Spent with Patient (minutes): 20 Provider Statement: I spent 100% of the Face to Face Visit with the patient with greater than 50% spent counseling the patient and coordination of care.
[2024-03-05 11:02] VITALS: BP 149/78; O2SAT 94
== END 2024-03-05 10:29 | disposition home or self-care (01) ==
LOC: SC 10:28
PROVIDERS: ATTEND Nurse Practitioner Family
DX: G47.33 Obstructive sleep apnea (adult) (pediatric) (principal); E66.9 Obesity, unspecified; Z68.33 Body mass index [BMI] 33.0-33.9, adult
CPT/HCPCS: 99213; G0463; 99212